=== PATIENT | male | born 2000 | race Caucasian/White ===

== ENCOUNTER 2025-04-17 11:15 | Outpatient (RCR) | payer BC, SELFPAY | END 2025-05-30 16:50 | disposition home or self-care (01) | LOC: HO.WCC 11:15 | PROVIDERS: Visit Provider Surgery Surgical Oncology | DX: L02.211 Cutaneous abscess of abdominal wall (principal); S31.103A Unspecified open wound of abdominal wall, right lower quadrant without penetration into peritoneal cavity, initial encounter; S31.100A Unspecified open wound of abdominal wall, right upper quadrant without penetration into peritoneal cavity, initial encounter; K50.018 Crohn's disease of small intestine with other complication; I10 Essential (primary) hypertension; F84.0 Autistic disorder; X58.XXXA Exposure to other specified factors, initial encounter; Y93.9 Activity, unspecified; Y92.9 Unspecified place or not applicable; Y99.9 Unspecified external cause status | CPT/HCPCS: 87070; 87073; 87077; 87186; 87205; 97597; 99213; 99214 ==